=== PATIENT | male | born 1970 | race Caucasian/White ===

== ENCOUNTER 2016-10-02 14:28 | Emergency (ER) | payer MEDICARE, MEDICAID ==
[~2016-10-02 14:28] MED LIST: ABILIFY 10MG TA10 MG PO; ADDERALL10 MG PO; ADVAIR DISKUS1 DS2 IH; ALBUTEROL0.09 MG/A4 IH; ALPHAMIN1000 MCG/M IM; ANTIVERT 25MG25 MG PO; ATARAX PO; ATIVAN1 M1 PO; CARDIZEM CD180 MG PO; CELEBREX 200MG200 MG PO; CEPHALEXIN500 M1 PO; CLARITIN PO; CLOBETASOL0.051 TP; CLONAZEPAM0.5 MG PO; COLACE 100100 MG/CAP PO; CYANOCOBAL1000 MCG/1 IM; CYMBALTA 60MG60 MG PO; CYMBALTA60 MG PO; DEPAKOTE500 M1 PO; DILAUDID 4MG TAB4 MG PO; DULERA1 AR1 IH; DULERA1 ARO IH; DURAGESIC50 MCG/PAT TD; FENTANYL 50MCG TP; FLOMAX 0.40.4 MG/CAP PO; FLONASE0.05 MG/AC NS; IBU800 M1 PO; LAMICTAL XR200 MG PO; LORAZEPAM0.5 MG PO; LORAZEPAM1 M1 PO; LORAZEPAM1 MG PO; MAXALT10 MG; MIRALAX 17GM PK1 PKT PO; MIRALAX 255 GM255 GM PO; MOBIC7.5 M1 PO; MYSOLINE50 MG PO; NEURONTIN300 M1 PO; NORCO 325 MG-51 TA1 PO; OXYCODONE PO; OXYCODONE30 MG PO; OXYCONTIN10 M1 PO; PERCOCET 325 MG1 TAB PO; PHENERGAN 25 TA25 MG PO; PREDNISONE20 M1 PO; SEROQUEL100 MG PO; SINGULAIR10 MG PO; SYMBICORT1 AE5 IH; SYNTHROID0.025 MG PO; THERAGRAN TAB1 UDTAB PO; TRAZADONE HYDR100 MG PO; VISTARIL25 M1 PO; VITAMIN C500 MG PO; ZANAFLEX4 M1 PO; ZANAFLEX4 MG PO; ZOFRAN8 MG PO; ZYPREXA 5MG5 MG; ZYPREXA10 MG PO; ZYPREXA2.5 M1; ZYRTEC10 M3 PO
[2016-11-02] MEDS ORDERED: ALLERGY RELIEF10 M2 PO (17:42)
[2016-11-02] MEDS ORDERED: LAMICTAL200 M1 PO (17:43)
[2016-11-02] MEDS ORDERED: WELLBUTRIN XL300 M1 PO (17:43)
[2016-11-02] MEDS ORDERED: CYMBALTA60 M1 PO (17:44)
[2016-11-02] MEDS ORDERED: OXYCODONE HCL30 MG PO (17:45)
[2016-11-02] MEDS ORDERED: ATIVAN1 M1 PO (17:46)
[2016-11-02] MEDS ORDERED: SINGULAIR PO (17:46)
[2016-11-02] MEDS ORDERED: AMBIEN10 MG PO (17:47)
[2016-11-02] MEDS ORDERED: RT ALBUTEROL CC18 GM INH (17:48)
[2016-11-02] MEDS ORDERED: HYDROXYZINE PAM50 M2 PO (17:49)
== END 2016-10-02 15:28 | disposition home or self-care (01) ==
LOC: ED 14:28
DX: F41.8 Other specified anxiety disorders (principal)
CPT/HCPCS: J1200; J2060

== ENCOUNTER 2016-11-02 18:19 | Emergency (ER) | payer MEDICARE, MEDICAID ==
[~2016-11-02 18:19] MED LIST changes: +ALLERGY RELIEF10 M2 PO; +AMBIEN10 MG PO; +CYMBALTA60 M1 PO; +HYDROXYZINE PAM50 M2 PO; +LAMICTAL200 M1 PO; +OXYCODONE HCL30 MG PO; +RT ALBUTEROL CC18 GM INH; +SINGULAIR PO; +WELLBUTRIN XL300 M1 PO
== END 2016-11-02 20:44 | disposition home or self-care (01) ==
LOC: ED 18:19
DX: F41.9 Anxiety disorder, unspecified (principal); F41.0 Panic disorder [episodic paroxysmal anxiety]; J06.9 Acute upper respiratory infection, unspecified; R51 Headache; J02.9 Acute pharyngitis, unspecified
CPT/HCPCS: J1200; J2060

== ENCOUNTER 2016-12-15 13:11 | Emergency (ER) | payer MEDICARE, MEDICAID ==
[2016-12-15] MEDS ORDERED: SILVADENE11 TP (21:02)
== END 2016-12-15 13:53 | disposition home or self-care (01) ==
LOC: ED 13:11
DX: F41.9 Anxiety disorder, unspecified (principal)
CPT/HCPCS: J1200; J2060

== ENCOUNTER 2016-12-15 18:38 | Emergency (ER) | payer MEDICARE, MEDICAID ==
[2016-12-15] MEDS ORDERED: SILVADENE11 TP (21:02)
== END 2016-12-15 21:12 | disposition home or self-care (01) ==
LOC: ED 18:38
DX: F41.0 Panic disorder [episodic paroxysmal anxiety] (principal); L98.491 Non-pressure chronic ulcer of skin of other sites limited to breakdown of skin

== ENCOUNTER 2017-09-17 11:59 | Emergency (ER) | payer MEDICARE, MEDICAID ==
[~2017-09-17] VITALS: Ht 165.1 cm; Wt 88.6 kg
[~2017-09-17 11:59] MED LIST changes: +SILVADENE11 TP
[2017-09-17 14:15] VITALS: BP 151/90
== END 2017-09-17 14:17 | disposition home or self-care (01) ==
LOC: ED 11:59
DX: F41.9 Anxiety disorder, unspecified (principal); Z88.8 Allergy status to other drugs, medicaments and biological substances
CPT/HCPCS: J1200; J2060

== ENCOUNTER → 2017-12-04 | Outpatient (CLI) | payer MEDICARE, MEDICAID | LOC: LAB 09:41 | DX: J02.8 Acute pharyngitis due to other specified organisms (principal) ==

== ENCOUNTER 2017-12-17 11:01 | Emergency (ER) | payer MEDICARE, MEDICAID ==
[~2017-12-17] VITALS: Ht 165.1 cm; Wt 93.2 kg
[2017-12-17] MEDS ORDERED: AMOXICILLIN AND1 TA2 PO (11:14)
[2017-12-17 12:14] VITALS: BP 134/88
== END 2017-12-17 12:15 | disposition home or self-care (01) ==
LOC: ED 11:01
DX: F41.1 Generalized anxiety disorder (principal); J45.909 Unspecified asthma, uncomplicated; Z88.8 Allergy status to other drugs, medicaments and biological substances
CPT/HCPCS: J1200; J1885; J2060

== ENCOUNTER 2019-04-01 21:29 | Emergency (ER) | payer MEDICARE, MEDICAID ==
[~2019-04-01 21:29] MED LIST changes: +AMOXICILLIN AND1 TA2 PO; +DURAGESIC25 MCG/PAT TD; -ZYPREXA 5MG5 MG; +ZYPREXA 5MG5 MG PO
[2019-04-01] MEDS ORDERED: OXYCODONE HCL10 M1 PO (21:53)
[2019-04-01] MEDS ORDERED: ZANAFLEX4 M1 PO (22:45)
[2019-04-01 23:06] VITALS: BP 138/88
== END 2019-04-01 23:08 | disposition home or self-care (01) ==
LOC: ED 21:29
DX: G44.209 Tension-type headache, unspecified, not intractable (principal); G89.29 Other chronic pain; M54.2 Cervicalgia; M54.9 Dorsalgia, unspecified; F41.9 Anxiety disorder, unspecified; F31.9 Bipolar disorder, unspecified

== ENCOUNTER 2021-01-18 17:11 | Emergency (ER) | payer MEDICARE, MEDICAID ==
[~2021-01-18 17:11] MED LIST changes: +OXYCODONE HCL10 M1 PO
[2021-01-18 17:18] VITALS: BP 142/88
== END 2021-01-18 18:55 | disposition home or self-care (01) ==
LOC: ED 17:11
DX: G43.909 Migraine, unspecified, not intractable, without status migrainosus (principal); G89.29 Other chronic pain; M54.2 Cervicalgia; I10 Essential (primary) hypertension; F31.9 Bipolar disorder, unspecified; F41.0 Panic disorder [episodic paroxysmal anxiety]; Z79.891 Long term (current) use of opiate analgesic; Z79.899 Other long term (current) drug therapy
CPT/HCPCS: J1200; J1885

== ENCOUNTER 2021-04-26 00:27 | Emergency (ER) | payer MEDICARE, MEDICAID ==
[2021-04-26] MEDS ORDERED: REMERON15 MG PO (00:50)
[2021-04-26] MEDS ORDERED: METHOCARBAMOL500 M1 PO (00:50)
[2021-04-26] MEDS ORDERED: NITROGLYCERIN0.4 M1 SL (00:50)
[2021-04-26] MEDS ORDERED: PANTOPRAZOLE SO40 MG PO (00:51)
[2021-04-26] MEDS ORDERED: GABAPENTIN TAB600 MG PO (00:52)
[2021-04-26] MEDS ORDERED: OXCARBAZEPINE150 M1 PO (00:53)
[2021-04-26] MEDS ORDERED: VOLTAREN 75 DR75 MG PO (00:53)
[2021-04-26 01:03] VITALS: BP 158/79
== END 2021-04-26 01:08 | disposition home or self-care (01) ==
LOC: ED 00:27
DX: M25.511 Pain in right shoulder (principal); F31.9 Bipolar disorder, unspecified; F41.0 Panic disorder [episodic paroxysmal anxiety]; G43.909 Migraine, unspecified, not intractable, without status migrainosus; I10 Essential (primary) hypertension; M54.2 Cervicalgia; M54.9 Dorsalgia, unspecified; G89.29 Other chronic pain; Z91.14 Patient's other noncompliance with medication regimen; Z98.890 Other specified postprocedural states; Z79.899 Other long term (current) drug therapy

== ENCOUNTER → 2021-06-17 | Outpatient (CLI) | payer MEDICARE, MEDICAID ==
[~2021-06-17] MED LIST changes: +AZITHROMYCIN 250MGPK PO; +COMPRESSOR NEB1 EACH MC; +GABAPENTIN TAB600 MG PO; +IPRATROPIUM BROM3 M1 IH; +METHOCARBAMOL500 M1 PO; +NITROGLYCERIN0.4 M1 SL; +OMEGA 3 1,0001 EACH PO; +OXCARBAZEPINE150 M1 PO; +PANTOPRAZOLE SO40 MG PO; +PERCOCET 325 MG1 TA2 PO; +POTASSIUM CH2 MEQ/ML PO; +PROAIR HFA0.09 MG/AC IH; +REMERON15 MG PO; +ROBAXIN 75750 MG/TA1 PO; +VITAMIN C PUR1000 MG PO; +VOLTAREN 75 DR75 MG PO
== END ==
LOC: LAB 15:28
DX: Z20.822 Contact with and (suspected) exposure to COVID-19 (principal)

== ENCOUNTER → 2021-06-29 | Outpatient (CLI) | payer MEDICARE, MEDICAID ==
[2021-06-29 13:59] LABS: EOS # 0.93 K/mm3 (0.04-0.40); EOS % 12.5 % (0.0-4.0); HEMATOCRIT 37.1 % (42.0-52.0); HEMOGLOBIN 12.7 g/dL (13.5-18.0); LYMPH# 2.97 K/mm3 (1.50-4.00); MEAN CELL VOLUME 89 fl (78-100); MEAN CORPUSCULAR HEMOGLOBIN 30 pg (27-31); MEAN CORPUSCULAR HGB CONC 34 g/dL (33-37); MEAN PLATELET VOLUME 8.2 fl (7.4-10.4); MONO # 0.69 K/mm3 (0.20-0.80); NEU # 2.73 K/mm3 (1.40-6.50); PLATELET COUNT 237 K/mm3 (130-400); RED BLOOD COUNT 4.19 M/mm3 (4.20-5.60); RED CELL DISTRIBUTION WIDTH 12.9 % (11.5-14.5); WHITE BLOOD COUNT 7.5 K/mm3 (4.8-10.8)
[2021-06-29 14:10] LABS: ALBUMIN 3.7 g/dL (3.5-5.0); POTASSIUM 3.3 mmol/L (3.5-5.1)
[2021-06-29 14:11] LABS: CALCIUM 8.8 mg/dL (8.3-10.5)
[2021-06-29 14:13] LABS: TOTAL PROTEIN 6.2 g/dL (6.4-8.3)
[2021-06-29 14:14] LABS: TOTAL BILIRUBIN 0.7 mg/dL (0.2-1.2)
== END ==
LOC: LAB 13:47
PROVIDERS: Nurse Practitioner Family
DX: R06.00 Dyspnea, unspecified (principal); Z96.82 Presence of neurostimulator

== ENCOUNTER 2021-06-30 05:47 | Emergency (ER) | payer MEDICARE, MEDICAID ==
[~2021-06-30] VITALS: Ht 165.1 cm; Wt 86.4 kg
[~2021-06-30 05:47] MED LIST changes: -AZITHROMYCIN 250MGPK PO; -COMPRESSOR NEB1 EACH MC; -IPRATROPIUM BROM3 M1 IH; -OMEGA 3 1,0001 EACH PO; -PERCOCET 325 MG1 TA2 PO; -POTASSIUM CH2 MEQ/ML PO; -PROAIR HFA0.09 MG/AC IH; -ROBAXIN 75750 MG/TA1 PO; -VITAMIN C PUR1000 MG PO
[2021-06-30] MEDS ORDERED: OMEGA 3 1,0001 EACH PO (06:08)
[2021-06-30] MEDS ORDERED: VITAMIN C PUR1000 MG PO (06:08)
[2021-06-30] MEDS ORDERED: PERCOCET 325 MG1 TA2 PO (06:14)
[2021-06-30] MEDS ORDERED: ROBAXIN 75750 MG/TA1 PO (06:15)
[2021-06-30 06:49] LABS: BASO # 0.08 K/mm3 (0.02-0.10); EOS # 1.04 K/mm3 (0.04-0.40); EOS % 14.9 % (0.0-4.0); HEMATOCRIT 38.1 % (42.0-52.0); HEMOGLOBIN 12.6 g/dL (13.5-18.0); LYMPH# 2.94 K/mm3 (1.50-4.00); MEAN CELL VOLUME 93 fl (78-100); MEAN CORPUSCULAR HEMOGLOBIN 31 pg (27-31); MEAN CORPUSCULAR HGB CONC 33 g/dL (33-37); MEAN PLATELET VOLUME 8.8 fl (7.4-10.4); MONO # 0.52 K/mm3 (0.20-0.80); NEU # 2.38 K/mm3 (1.40-6.50); PLATELET COUNT 257 K/mm3 (130-400); RED CELL DISTRIBUTION WIDTH 12.8 % (11.5-14.5)
[2021-06-30 07:00] LABS: ALBUMIN 3.5 g/dL (3.5-5.0); POTASSIUM 3.3 mmol/L (3.5-5.1); SODIUM 139 mmol/L (136-145)
[2021-06-30 07:01] LABS: CALCIUM 8.8 mg/dL (8.3-10.5)
[2021-06-30 07:02] LABS: GLUCOSE 108 mg/dL (75-110)
[2021-06-30 07:03] LABS: TOTAL PROTEIN 5.8 g/dL (6.4-8.3)
[2021-06-30 07:04] LABS: CARBON DIOXIDE 22 mmol/L (22-29); TOTAL BILIRUBIN 0.4 mg/dL (0.2-1.2)
[2021-06-30 07:08] LABS: AST-SGOT 12 U/L (5-34)
[2021-06-30 07:09] LABS: ALT/SGPT 9 U/L (0-55)
[2021-06-30 07:11] LABS: URINE APPEARANCE CLEAR; URINE BILIRUBIN NEGATIVE (NEGATIVE); URINE BLOOD NEGATIVE (NEGATIVE); URINE COLOR YELLOW; URINE GLUCOSE NEGATIVE (NEGATIVE); URINE KETONE NEGATIVE (NEGATIVE); URINE LEUKOCYTE ESTERASE NEGATIVE (NEGATIVE); URINE NITRATE NEGATIVE (NEGATIVE); URINE PROTEIN(semi-quant) TRACE mg/dL (NEGATIVE); URINE UROBILINOGEN NORMAL (NORMAL); URINE WBC 0-1 /hpf (0-3)
[2021-06-30 07:23] LABS: TROPONIN-I < 0.03 ng/mL (<0.030)
[2021-06-30] MEDS ORDERED: PROAIR HFA0.09 MG/AC IH (08:05)
[2021-06-30] MEDS ORDERED: AZITHROMYCIN 250MGPK PO (08:05)
[2021-06-30] MEDS ORDERED: COMPRESSOR NEB1 EACH MC (08:05)
[2021-06-30] MEDS ORDERED: PREDNISONE20 M1 PO (08:05)
[2021-06-30] MEDS ORDERED: POTASSIUM CH2 MEQ/ML PO (08:05)
[2021-06-30] MEDS ORDERED: IPRATROPIUM BROM3 M1 IH (08:05)
[2021-06-30 08:14] VITALS: BP 128/80
[2021-07-01] MEDS ORDERED: ZANAFLEX4 M1 PO (04:00)
== END 2021-06-30 08:14 | disposition home or self-care (01) ==
LOC: ED 05:47
PROVIDERS: Family Medicine
DX: J45.909 Unspecified asthma, uncomplicated (principal); E87.6 Hypokalemia; Z20.822 Contact with and (suspected) exposure to COVID-19; Z79.899 Other long term (current) drug therapy
CPT/HCPCS: J2930

== ENCOUNTER 2021-07-01 03:12 | Emergency (ER) | payer MEDICARE, MEDICAID ==
[~2021-07-01] VITALS: Ht 165.1 cm; Wt 86.4 kg
[~2021-07-01 03:12] MED LIST changes: +AZITHROMYCIN 250MGPK PO; +COMPRESSOR NEB1 EACH MC; +IPRATROPIUM BROM3 M1 IH; +OMEGA 3 1,0001 EACH PO; +PERCOCET 325 MG1 TA2 PO; +POTASSIUM CH2 MEQ/ML PO; +PROAIR HFA0.09 MG/AC IH; +ROBAXIN 75750 MG/TA1 PO; +VITAMIN C PUR1000 MG PO
[2021-07-01] MEDS ORDERED: ZANAFLEX4 M1 PO (04:00)
[2021-07-01 04:23] VITALS: BP 126/67
== END 2021-07-01 04:23 | disposition home or self-care (01) ==
LOC: ED 03:12
DX: R44.1 Visual hallucinations (principal); T48.1X5A Adverse effect of skeletal muscle relaxants [neuromuscular blocking agents], initial encounter; J45.909 Unspecified asthma, uncomplicated; F31.9 Bipolar disorder, unspecified; Z79.899 Other long term (current) drug therapy

== ENCOUNTER 2022-08-02 07:59 | Emergency (ER) | payer MEDICARE, MEDICAID ==
[~2022-08-02] VITALS: Ht 165.1 cm; Wt 81.8 kg
[2022-08-02 08:57] LABS: URINE APPEARANCE CLOUDY; URINE COLOR AMBER
[2022-08-02 08:58] LABS: URINE BILIRUBIN NEGATIVE (NEGATIVE); URINE BLOOD TRACE (NEGATIVE); URINE GLUCOSE NEGATIVE (NEGATIVE); URINE KETONE 1+ (NEGATIVE); URINE LEUKOCYTE ESTERASE NEGATIVE (NEGATIVE); URINE NITRATE NEGATIVE (NEGATIVE); URINE PROTEIN(semi-quant) 2+ (NEGATIVE); URINE UROBILINOGEN NORMAL (NORMAL)
[2022-08-02 09:32] LABS: BASO # 0.04 K/mm3 (0.02-0.10); EOS # 0.04 K/mm3 (0.04-0.40); EOS % 0.2 % (0.0-4.0); HEMATOCRIT 54.3 % (42.0-52.0); HEMOGLOBIN 19.9 g/dL (13.5-18.0); MEAN CELL VOLUME 81 fl (78-100); MEAN CORPUSCULAR HEMOGLOBIN 30 pg (27-31); MEAN CORPUSCULAR HGB CONC 37 g/dL (33-37); MEAN PLATELET VOLUME 9.3 fl (7.4-10.4); MONO # 1.44 K/mm3 (0.20-0.80); NEU # 14.23 K/mm3 (1.40-6.50); PLATELET COUNT 370 K/mm3 (130-400); RED BLOOD COUNT 6.71 M/mm3 (4.20-5.60)
[2022-08-02 09:38] LABS: ALBUMIN 5.6 g/dL (3.5-5.0); POTASSIUM 3.3 mmol/L (3.5-5.1)
[2022-08-02 09:39] LABS: CALCIUM 11.6 mg/dL (8.3-10.5)
[2022-08-02 09:41] LABS: TOTAL PROTEIN 9.6 g/dL (6.4-8.3)
[2022-08-02 09:42] LABS: TOTAL BILIRUBIN 1.9 mg/dL (0.2-1.2)
[2022-08-02] MEDS ORDERED: HYDROXYZINE PAM50 M2 PO (09:58)
[2022-08-02] MEDS ORDERED: SEROQUEL 200MG200 MG PO ×2 (10:03→10:13)
[2022-08-02] MEDS ORDERED: DESYREL DIVIDO150 M1 PO (10:04)
[2022-08-02] MEDS ORDERED: MORPHINE SULFAT15 M7 PO (10:04)
[2022-08-02] MEDS ORDERED: MS CONTIN 330 MG/TAB PO (10:05)
[2022-08-02] MEDS ORDERED: CYMBALTA60 M1 PO (10:13)
[2022-08-02] MEDS ORDERED: CEFTRIAXONE1 G1 IV (10:13)
[2022-08-02] MEDS ORDERED: ZOFRAN ODT4 MG PO (10:13)
[2022-08-02] MEDS ORDERED: OXCARBAZEPINE600 M1 PO (10:13)
[2022-08-02] MEDS ORDERED: LAMICTAL200 M1 PO (10:13)
[2022-08-02] MEDS ORDERED: LIDOCAINE IJ (10:28)
[2022-08-02] MEDS ORDERED: CIPRO500 M1 PO (10:34)
[2022-08-02 11:28] VITALS: BP 166/103
== END 2022-08-02 11:00 | disposition home or self-care (01) ==
LOC: ED 07:59
PROVIDERS: Family Medicine
DX: N12 Tubulo-interstitial nephritis, not specified as acute or chronic (principal); N17.9 Acute kidney failure, unspecified; E87.6 Hypokalemia; D58.2 Other hemoglobinopathies; Z87.440 Personal history of urinary (tract) infections
CPT/HCPCS: J0696; J7030

== ENCOUNTER 2022-10-09 13:23 | Emergency (ER) | payer MEDICARE, MEDICAID ==
[~2022-10-09 13:23] MED LIST changes: +CEFTRIAXONE1 G1 IV; +CIPRO500 M1 PO; +DESYREL 100MG100 MG PO; +DESYREL DIVIDO150 M1 PO; +LIDOCAINE IJ; +MORPHINE SULFAT15 M7 PO; +MS CONTIN 330 MG/TAB PO; +OXCARBAZEPINE600 M1 PO; +PROPRANOLOL HYD60 M1 PO; +SEROQUEL 200MG200 MG PO; +ZITHROMAX Z PA250 MG PO; +ZOFRAN ODT4 MG PO
[2022-10-09 14:08] LABS: BASO # 0.03 K/mm3 (0.02-0.10); EOS # 0.03 K/mm3 (0.04-0.40); EOS % 0.2 % (0.0-4.0); HEMATOCRIT 47.2 % (42.0-52.0); HEMOGLOBIN 17.4 g/dL (13.5-18.0); LYMPH# 2.82 K/mm3 (1.50-4.00); MEAN CELL VOLUME 79 fl (78-100); MEAN CORPUSCULAR HEMOGLOBIN 29 pg (27-31); MEAN CORPUSCULAR HGB CONC 37 g/dL (33-37); MEAN PLATELET VOLUME 9.3 fl (7.4-10.4); MONO # 1.39 K/mm3 (0.20-0.80); NEU # 11.45 K/mm3 (1.40-6.50); PLATELET COUNT 328 K/mm3 (130-400); RED BLOOD COUNT 6.01 M/mm3 (4.20-5.60); RED CELL DISTRIBUTION WIDTH 11.9 % (11.5-14.5); WHITE BLOOD COUNT 15.8 K/mm3 (4.8-10.8)
[2022-10-09 14:19] LABS: ALBUMIN 4.7 g/dL (3.5-5.0); SODIUM 137 mmol/L (136-145)
[2022-10-09 14:20] LABS: CALCIUM 10.2 mg/dL (8.3-10.5)
[2022-10-09 14:21] LABS: GLUCOSE 104 mg/dL (75-110); TOTAL PROTEIN 7.9 g/dL (6.4-8.3)
[2022-10-09 14:22] LABS: CARBON DIOXIDE 22 mmol/L (22-29)
[2022-10-09 14:23] LABS: TOTAL BILIRUBIN 3.2 mg/dL (0.2-1.2)
[2022-10-09 14:25] LABS: ALCOHOL IN-HOUSE < 10 mg/dL (<10)
[2022-10-09 14:26] LABS: AST-SGOT 61 U/L (5-34)
[2022-10-09 14:28] LABS: ALT/SGPT 44 U/L (0-55)
[2022-10-09 14:29] LABS: ACETAMINOPHEN < 1 ug/mL
[2022-10-09 14:43] LABS: TROPONIN-I < 0.030 ng/mL (<0.030)
[2022-10-09 15:25] LABS: URINE APPEARANCE HAZY; URINE BILIRUBIN 1+ (NEGATIVE); URINE BLOOD 250 ery/uL (NEGATIVE); URINE COLOR YELLOW; URINE GLUCOSE NEGATIVE (NEGATIVE); URINE KETONE NEGATIVE (NEGATIVE); URINE LEUKOCYTE ESTERASE 1+ (NEGATIVE); URINE NITRATE POSITIVE (NEGATIVE); URINE PROTEIN(semi-quant) 3+ (NEGATIVE); URINE UROBILINOGEN 4 mg/dL (NORMAL)
[2022-10-09 15:26] LABS: URINE MUCUS PRESENT (NOT PRESENT); URINE WBC 16-30 /hpf (0-3)
[2022-10-09 15:54] LABS: MAGNESIUM 1.75 mg/dL (1.60-2.60)
[2022-10-09 18:19] VITALS: BP 145/101
[2022-10-10] MEDS ORDERED: MS CONTIN30 MG PO (10:41)
[2022-10-10] MEDS ORDERED: ACETAMINOPHEN500 M5 PO (13:00)
[2022-10-10] MEDS ORDERED: VITAMIN D3 MA125 MCG PO (13:02)
[2022-10-10] MEDS ORDERED: CYMBALTA60 M1 PO (13:03)
[2022-10-10] MEDS ORDERED: AIMOVIG AU70 MG/1 ML SQ (13:04)
[2022-10-10] MEDS ORDERED: FLONASE ALLERG9.9 ML NS (13:05)
[2022-10-10] MEDS ORDERED: NEURONTIN300 M1 PO (13:06)
[2022-10-10] MEDS ORDERED: HYDROXYZINE HYD50 M1 PO (13:11)
[2022-10-10] MEDS ORDERED: GOOD NEIGHBOR200 M1 PO (13:14)
[2022-10-10] MEDS ORDERED: LAMOTRIGINE200 MG PO (13:43)
[2022-10-10] MEDS ORDERED: MAGNESIUM400 M1 PO (13:45)
[2022-10-10] MEDS ORDERED: MS CONTIN15 MG PO (13:46)
[2022-10-10] MEDS ORDERED: ONDANSETRON HYDR4 MG PO (13:47)
[2022-10-10] MEDS ORDERED: TRILEPTAL600 M1 PO (13:48)
[2022-10-10] MEDS ORDERED: NALOXONE HCL4 MG NS (13:50)
[2022-10-10] MEDS ORDERED: FLOMAX0.4 MG PO (13:55)
[2022-10-10] MEDS ORDERED: ZANAFLEX CAPSULE2 MG PO (13:58)
[2022-10-10] MEDS ORDERED: VITAMIN B12 1541 TAB PO (13:59)
== END 2022-10-09 18:35 | disposition other institution (70) ==
LOC: ED 13:23
PROVIDERS: Nurse Practitioner
DX: U07.1 COVID-19 (principal); A41.9 Sepsis, unspecified organism; N39.0 Urinary tract infection, site not specified; R41.82 Altered mental status, unspecified; E87.6 Hypokalemia; E66.9 Obesity, unspecified
CPT/HCPCS: J0696; J7030; Q9967

== ENCOUNTER 2022-10-09 18:25 | Inpatient (IN) | payer MEDICARE, MEDICAID ==
[~2022-10-09] VITALS: Ht 165.1 cm; Wt 79.0 kg
--- NOTE | 2022-10-09 18:45 | NUR ---
Patient to room 204. Asked patient if he was hungry, offered ham and cheese zachariah, sandy, tosiobhan, PB&J, patient states that he does not like ham and responds "I don't know." to all other options. Patient is instructed to think about what he would like to eat and let staff know when decides. Instructed patient to use his call light for assistance before getting out of bed/chair for his safety due to fall risk. Patient verbalizes understanding. NS infusing through IV to left hand per orders. Denies needs. Fall precautions in place.
[2022-10-09 22:00] VITALS: BP 159/87
[2022-10-09 22:32] VITALS: BP 159/87
[2022-10-10] VITALS (7 sets, daily range): BP systolic 137–165; BP diastolic 68–95
--- NOTE | 2022-10-10 07:58 | NUR ---
Rupinder Sharpe PA-C at bedside for GC/chlamydia swab.
[2022-10-10 08:52] LABS: BASO # 0.01 K/mm3 (0.02-0.10); EOS # 0.02 K/mm3 (0.04-0.40); EOS % 0.3 % (0.0-4.0); HEMATOCRIT 39.6 % (42.0-52.0); HEMOGLOBIN 14.2 g/dL (13.5-18.0); LYMPH# 1.72 K/mm3 (1.50-4.00); MEAN CELL VOLUME 81 fl (78-100); MEAN CORPUSCULAR HEMOGLOBIN 29 pg (27-31); MEAN CORPUSCULAR HGB CONC 36 g/dL (33-37); MEAN PLATELET VOLUME 10.9 fl (7.4-10.4); MONO # 0.65 K/mm3 (0.20-0.80); NEU # 3.93 K/mm3 (1.40-6.50); RED BLOOD COUNT 4.91 M/mm3 (4.20-5.60); WHITE BLOOD COUNT 6.4 K/mm3 (4.8-10.8)
[2022-10-10 09:01] LABS: CALCIUM 8.2 mg/dL (8.3-10.5)
[2022-10-10 09:18] LABS: POTASSIUM 2.8 mmol/L (3.5-5.1)
--- NOTE | 2022-10-10 09:31 | NUR ---
Rupinder Sharpe PA-C notified of critical lab values.
--- NOTE | 2022-10-10 10:13 | NUR ---
Patient requesting to speak with [place] police department. Officer is present in building and notified of request.
--- NOTE | 2022-10-10 10:15 | NUR ---
[employer] financial aid officer at bedside per patient request.
[2022-10-10] MEDS ORDERED: MS CONTIN30 MG PO (10:41)
--- NOTE | 2022-10-10 11:30 | NUR ---
Patient unable to provide name of PCP. States that Dr. Porter prescribes his mental health medications. Contacted Dr. Porter's office to obtain medication list.
[2022-10-10] MEDS ORDERED: ACETAMINOPHEN500 M5 PO (13:00)
[2022-10-10] MEDS ORDERED: VITAMIN D3 MA125 MCG PO (13:02)
[2022-10-10] MEDS ORDERED: CYMBALTA60 M1 PO (13:03)
[2022-10-10] MEDS ORDERED: AIMOVIG AU70 MG/1 ML SQ (13:04)
[2022-10-10] MEDS ORDERED: FLONASE ALLERG9.9 ML NS (13:05)
[2022-10-10] MEDS ORDERED: NEURONTIN300 M1 PO (13:06)
[2022-10-10] MEDS ORDERED: HYDROXYZINE HYD50 M1 PO (13:11)
[2022-10-10] MEDS ORDERED: GOOD NEIGHBOR200 M1 PO (13:14)
[2022-10-10] MEDS ORDERED: LAMOTRIGINE200 MG PO (13:43)
[2022-10-10] MEDS ORDERED: MAGNESIUM400 M1 PO (13:45)
[2022-10-10] MEDS ORDERED: MS CONTIN15 MG PO (13:46)
[2022-10-10] MEDS ORDERED: ONDANSETRON HYDR4 MG PO (13:47)
[2022-10-10] MEDS ORDERED: TRILEPTAL600 M1 PO (13:48)
[2022-10-10] MEDS ORDERED: NALOXONE HCL4 MG NS (13:50)
[2022-10-10] MEDS ORDERED: FLOMAX0.4 MG PO (13:55)
[2022-10-10] MEDS ORDERED: ZANAFLEX CAPSULE2 MG PO (13:58)
[2022-10-10] MEDS ORDERED: VITAMIN B12 1541 TAB PO (13:59)
[2022-10-10 17:43] LABS: ALBUMIN 3.3 g/dL (3.5-5.0)
[2022-10-10 17:45] LABS: CALCIUM 8.4 mg/dL (8.3-10.5)
[2022-10-10 17:46] LABS: TOTAL PROTEIN 5.8 g/dL (6.4-8.3)
[2022-10-10 17:48] LABS: TOTAL BILIRUBIN 1.4 mg/dL (0.2-1.2)
--- NOTE | 2022-10-10 20:46 | NUR ---
Report received from Purnima ARAGON. Rests in supine in bed with eyes closed. IVF infusing NS at 100 ML/HR. Site patent to L hand. Drowsy, arouses with verbal stimuli. Takes PO HS medications with much coaching from nurse. Swallows without diffculty. Keeps eyes closed during entire interaction with nurse and will not answer questions when asked. TELE in place, NSR in 70's. No signs of pain/distress. Remains on COVID isoliation. Assessment completed.
--- NOTE | 2022-10-10 23:34 | NUR ---
New bag of IVF hung. NS to run at 100 ML/HR. Rests with eyes closed. Respirations even and non-labored. HR 90 NSR per TELE.
[2022-10-11 02:17] VITALS: BP 124/78
--- NOTE | 2022-10-11 05:12 | NUR ---
Awake, Up to BR with SBA and walker. Denies pain. Drowsy. Takes AM medications without difficulty. Cooperative with staff, asks how his Mother is doing, advised by this nurse she is doing fine and resting. Patient asks, "can I go see her" Advised not at this time, states "why, what is going on". This nurse advises it is early and that patient is resting and visiting will have to be cleared with administration later today.
[2022-10-11 05:30] VITALS: BP 121/88
[2022-10-11 06:53] LABS: BASO # 0.03 K/mm3 (0.02-0.10); EOS # 0.23 K/mm3 (0.04-0.40); EOS % 3.4 % (0.0-4.0); HEMATOCRIT 39.1 % (42.0-52.0); HEMOGLOBIN 13.6 g/dL (13.5-18.0); LYMPH# 1.56 K/mm3 (1.50-4.00); MEAN CELL VOLUME 84 fl (78-100); MEAN CORPUSCULAR HEMOGLOBIN 29 pg (27-31); MEAN CORPUSCULAR HGB CONC 35 g/dL (33-37); MEAN PLATELET VOLUME 9.1 fl (7.4-10.4); NEU # 3.94 K/mm3 (1.40-6.50); PLATELET COUNT 188 K/mm3 (130-400); RED BLOOD COUNT 4.64 M/mm3 (4.20-5.60); RED CELL DISTRIBUTION WIDTH 12.6 % (11.5-14.5); WHITE BLOOD COUNT 6.7 K/mm3 (4.8-10.8)
[2022-10-11 07:00] LABS: ALBUMIN 3.2 g/dL (3.5-5.0)
[2022-10-11 07:01] LABS: CALCIUM 8.2 mg/dL (8.3-10.5)
[2022-10-11 07:03] LABS: TOTAL PROTEIN 5.6 g/dL (6.4-8.3)
[2022-10-11 07:04] LABS: TOTAL BILIRUBIN 0.9 mg/dL (0.2-1.2)
[2022-10-11 07:06] LABS: POTASSIUM 2.8 mmol/L (3.5-5.1)
--- NOTE | 2022-10-11 07:13 | NUR ---
Report to Purnima ARAGON.
[2022-10-11 10:30] VITALS: BP 126/76
[2022-10-11 12:46] LABS: ALBUMIN 3.2 g/dL (3.5-5.0)
[2022-10-11 12:47] LABS: POTASSIUM 3.2 mmol/L (3.5-5.1)
[2022-10-11 12:48] LABS: CALCIUM 8.2 mg/dL (8.3-10.5)
[2022-10-11 12:49] LABS: TOTAL PROTEIN 5.4 g/dL (6.4-8.3)
[2022-10-11 12:51] LABS: TOTAL BILIRUBIN 0.9 mg/dL (0.2-1.2)
--- NOTE | 2022-10-11 14:28 | NUR ---
SPOKE WITH HERSON REGARDING HIS MOMS INFORMATION. ADVISED THAT WE WERE PROCEEDING FOR SHELTER PLACEMENT. HE WAS NOT HAPPY ABOUT THAT. HE ASKS "THEY ARE NOT GOING TO TAKE OUR HOUSE ARE THEY?" THIS CM ADVISED THAT HERSON WAS NOT ABLE TO CARE FOR HIS MOM IN HER HOME. IT IS TOO MUCH FOR ONE PERSON TO CARE FOR HER. SHE NEEDS TO BE CLEAN, GIVEN MEALS AND DRINKS AND DIAPER CHANGES. HERSON REPORTS THAT HE IS GOING TO HAVE HIS FRIEND COME FROM [place] TO HELP HIM. MACIE SANCHEZ.
[2022-10-11 14:40] VITALS: BP 117/73
[2022-10-11 17:33] VITALS: BP 117/61
--- NOTE | 2022-10-11 20:00 | NUR ---
Upon entering room pt awake watching TV. Very cooperative. Wanting sprite and jello. INT in Lt hand, flushing without pain or difficulty. Site redressed. Took pills without difficulty. Limited pt to no more than 5 pills at a time. Pt orientated to person, place. Pt asked about mother and requests staff to tell her, he "loves her and misses her".
--- NOTE | 2022-10-12 01:00 | NUR ---
Report received from Shari ARAGON. Patient resting in bed with eyes closed. Respirations with ease.
--- NOTE | 2022-10-12 05:10 | NUR ---
Patient up to the bathroom to void and back to bed. Reports dull throbbing pain to neck/back and right forearm 06/26. Requests motrin and MS contin and meds given and taken without problems. States he slept well this noc until awakened and had pain "think I laid on my arm wrong". 2 pops given per request.
[2022-10-12 05:48] VITALS: BP 125/68
[2022-10-12 07:29] LABS: BASO # 0.02 K/mm3 (0.02-0.10); EOS # 0.37 K/mm3 (0.04-0.40); EOS % 5.3 % (0.0-4.0); HEMATOCRIT 36.1 % (42.0-52.0); HEMOGLOBIN 12.7 g/dL (13.5-18.0); LYMPH# 1.82 K/mm3 (1.50-4.00); MEAN CELL VOLUME 84 fl (78-100); MEAN CORPUSCULAR HEMOGLOBIN 30 pg (27-31); MEAN CORPUSCULAR HGB CONC 35 g/dL (33-37); MEAN PLATELET VOLUME 8.7 fl (7.4-10.4); MONO # 0.53 K/mm3 (0.20-0.80); NEU # 4.12 K/mm3 (1.40-6.50); PLATELET COUNT 197 K/mm3 (130-400); RED BLOOD COUNT 4.31 M/mm3 (4.20-5.60); RED CELL DISTRIBUTION WIDTH 12.4 % (11.5-14.5); WHITE BLOOD COUNT 6.9 K/mm3 (4.8-10.8)
[2022-10-12 07:40] LABS: ALBUMIN 3.4 g/dL (3.5-5.0); POTASSIUM 3.4 mmol/L (3.5-5.1)
[2022-10-12 07:42] LABS: CALCIUM 8.5 mg/dL (8.3-10.5)
[2022-10-12 07:43] LABS: TOTAL PROTEIN 5.9 g/dL (6.4-8.3)
[2022-10-12 07:45] LABS: TOTAL BILIRUBIN 0.5 mg/dL (0.2-1.2)
--- NOTE | 2022-10-12 07:50 | NUR ---
PATIENT SITTING UP IN BED, A&OX4, STATES PAIN TO NECK, SHOULDERS, AND BACK; STATES PAIN IS CHRONIC. ASSESSMENT COMPLETE, MEDICATIONS GIVEN. PATIENT DENIES OTHER NEEDS OR COMPLAINTS AT THIS TIME. BED ALARM ON, CALL LIGHT WITHIN REACH.
[2022-10-12] MEDS ORDERED: K-TAB20 MEQ PO (08:46)
--- NOTE | 2022-10-12 09:37 | NUR ---
PATIENT GIVEN DISHCARGE INSTRUCTIONS AT THIS TIME. LE OFFICERS ENTERED ROOM AT THIS TIME.
--- NOTE | 2022-10-12 12:20 | NUR ---
PATIENT LEFT WITH BLAISE AT THIS TIME.
== END 2022-10-12 09:37 | disposition home or self-care (01) | DRG 871 ==
LOC: MED/SURG 18:25
PROVIDERS: Family Medicine; Internal Medicine; Physician Assistant; ADMIT Nurse Practitioner
DX: A41.9 Sepsis, unspecified organism (principal); U07.1 COVID-19; N39.0 Urinary tract infection, site not specified; I10 Essential (primary) hypertension; E87.6 Hypokalemia; F31.9 Bipolar disorder, unspecified; G89.29 Other chronic pain; E66.9 Obesity, unspecified; Z68.28 Body mass index [BMI] 28.0-28.9, adult; F60.3 Borderline personality disorder; Z79.891 Long term (current) use of opiate analgesic; Z88.8 Allergy status to other drugs, medicaments and biological substances
CPT/HCPCS: A9270; J0696; J3480; J7030; Q0177

== ENCOUNTER → 2023-05-28 | Outpatient (CLI) | payer MEDICARE ==
[~2023-05-28] MED LIST changes: +ACETAMINOPHEN500 M5 PO; +AIMOVIG AU70 MG/1 ML SQ; +BUTRANS15 MCG/HR TD; +FLOMAX0.4 MG PO; +FLONASE ALLERG9.9 ML NS; +GOOD NEIGHBOR200 M1 PO; +HYDROXYZINE HYD50 M1 PO; +K-TAB20 MEQ PO; +LAMOTRIGINE200 MG PO; +MAGNESIUM400 M1 PO; +MS CONTIN15 MG PO; +MS CONTIN30 MG PO; +NALOXONE HCL4 MG NS; +ONDANSETRON HYDR4 MG PO; +TRILEPTAL600 M1 PO; +VIBRAMYCIN HYC100 MG PO; +VITAMIN B12 1541 TAB PO; +VITAMIN D3 MA125 MCG PO; +ZANAFLEX CAPSULE2 MG PO
[2023-05-28 08:54] LABS: ALBUMIN 3.8 g/dL (3.5-5.0); POTASSIUM 4.4 mmol/L (3.5-5.1)
[2023-05-28 08:55] LABS: CALCIUM 8.8 mg/dL (8.3-10.5)
[2023-05-28 08:56] LABS: TOTAL PROTEIN 6.2 g/dL (6.4-8.3)
[2023-05-28 08:58] LABS: TOTAL BILIRUBIN 0.7 mg/dL (0.2-1.2)
== END ==
LOC: LAB 08:18
PROVIDERS: Nurse Practitioner Family
DX: R53.83 Other fatigue (principal)

== ENCOUNTER → 2023-10-12 | Outpatient (CLI) | payer MEDICARE ==
[2023-10-12 09:26] LABS: BASO # 0.05 K/mm3 (0.02-0.10); EOS # 0.27 K/mm3 (0.04-0.40); EOS % 4.7 % (0.0-4.0); HEMATOCRIT 42.5 % (42.0-52.0); HEMOGLOBIN 15.2 g/dL (13.5-18.0); LYMPH# 2.04 K/mm3 (1.50-4.00); MEAN CELL VOLUME 82 fl (78-100); MEAN CORPUSCULAR HEMOGLOBIN 30 pg (27-31); MEAN CORPUSCULAR HGB CONC 36 g/dL (33-37); MEAN PLATELET VOLUME 8.1 fl (7.4-10.4); MONO # 0.56 K/mm3 (0.20-0.80); NEU # 2.74 K/mm3 (1.40-6.50); PLATELET COUNT 220 K/mm3 (130-400); RED BLOOD COUNT 5.16 M/mm3 (4.20-5.60); RED CELL DISTRIBUTION WIDTH 11.5 % (11.5-14.5); WHITE BLOOD COUNT 5.7 K/mm3 (4.8-10.8)
[2023-10-12 09:36] LABS: ALBUMIN 4.4 g/dL (3.5-5.0)
[2023-10-12 09:37] LABS: CALCIUM 9.1 mg/dL (8.3-10.5)
[2023-10-12 09:38] LABS: TOTAL PROTEIN 6.8 g/dL (6.4-8.3)
[2023-10-12 09:40] LABS: TOTAL BILIRUBIN 1.2 mg/dL (0.2-1.2)
[2023-10-12 09:45] LABS: MAGNESIUM 1.72 mg/dL (1.60-2.60)
[2023-10-12 23:55] LABS: FOLATE (FOLIC ACID) 5.8 ng/mL (2.0-20.0)
== END ==
LOC: LAB 09:04
PROVIDERS: Internal Medicine
DX: Z12.5 Encounter for screening for malignant neoplasm of prostate (principal); Z11.4 Encounter for screening for human immunodeficiency virus [HIV]; I10 Essential (primary) hypertension; K90.9 Intestinal malabsorption, unspecified; R73.9 Hyperglycemia, unspecified; E03.9 Hypothyroidism, unspecified